=== PATIENT | male | born 1995 | race Caucasian/White ===

== ENCOUNTER 2020-03-26 23:38 | Emergency (ER) | payer BC ==
[~2020-03-26] VITALS: Ht 172.7 cm; Wt 65.8 kg
== END 2020-03-27 00:10 | disposition home or self-care (01) ==
LOC: ED 23:38
DX: Z20.828 Contact with and (suspected) exposure to other viral communicable diseases (principal); Z88.8 Allergy status to other drugs, medicaments and biological substances; Z91.010 Allergy to peanuts